=== PATIENT | male | born 1995 | race Two or more races ===

== ENCOUNTER 2018-12-19 12:51 | Emergency (ER) | payer SELFPAY ==
[~2018-12-19] VITALS: Ht 167.6 cm; Wt 68.0 kg
[2018-12-19 12:56] VITALS: BP 128/89
== END 2018-12-19 13:21 | disposition home or self-care (01) ==
LOC: ER 12:58
DX: S70.01XA Contusion of right hip, initial encounter (principal); V49.59XA Passenger injured in collision with other motor vehicles in traffic accident, initial encounter; Y93.89 Activity, other specified; Y92.413 State road as the place of occurrence of the external cause; Y99.8 Other external cause status
CPT/HCPCS: Z7502